=== PATIENT | female | born 1980 | race Caucasian/White ===

== ENCOUNTER 2023-09-11 16:23 | Emergency (ER) | payer MEDICAID ==
[~2023-09-11] VITALS: Ht 180.3 cm; Wt 101.0 kg
[2023-09-11 17:04] VITALS: BP 150/99; PULSE 89; RESP 17; TEMP 99.2; O2SAT 98
[2023-09-11 17:39] LABS: EOSINOPHILS # (AUTO) 0.1 X10'3 (0-0.9)
[2023-09-11 17:41] LABS: BASOPHILS # (AUTO) 0.2 X10'3 (0-0.2); BASOPHILS % (AUTO) 3.2 % (0-1); EOSINOPHILS % (AUTO) 1.5 % (0-6); LYMPHOCYTES # (AUTO) 1.5 X10'3 (1.1-4.8); LYMPHOCYTES % (AUTO) 23.6 % (21-51); MEAN PLATELET VOLUME 8.8 FL (7.4-10.4); MONOCYTES # (AUTO) 0.7 X10'3 (0-0.9); MONOCYTES % (AUTO) 10.7 % (2-12); NEUTROPHILS # (AUTO) 3.8 X10'3 (1.8-7.7); PLATELET COUNT 473 X10'3 (140-440); WHITE BLOOD COUNT 6.3 X10'3 (4.5-11.0)
[2023-09-11 17:53] LABS: ALANINE AMINOTRANSFERASE 16 U/L (12-78); ALBUMIN 3.8 G/DL (3.4-5.0); ALBUMIN/GLOBULIN RATIO 0.9 (1.1-1.5); ALKALINE PHOSPHATASE 90 IU/L (46-116); ANION GAP 8 (8-16); ASPARTATE AMINO TRANSFERASE 35 U/L (10-37); BILIRUBIN,TOTAL 0.4 MG/DL (0.1-1.0); BLOOD UREA NITROGEN 8 MG/DL (7-18); BUN/CREATININE RATIO 11.1 (10.0-20.0); CALCIUM 9.3 MG/DL (8.5-10.1); CHLORIDE 105 MMOL/L (99-107); CREATININE 0.72 MG/DL (0.40-0.90); GLUCOSE 115 MG/DL (70-104); POTASSIUM 4.2 MMOL/L (3.5-5.1); SODIUM 138 MMOL/L (135-145); TOTAL CARBON DIOXIDE 24.7 MMOL/L (24-32); TOTAL PROTEIN 8.1 G/DL (6.4-8.2); eCRCL 115 ML/MIN; eGFR 89 ML/MIN
[2023-09-11 17:57] LABS: HEMOGLOBIN 10.5 g/dl (12.0-16.0); RED BLOOD COUNT 4.83 X10'6 (4.20-5.60)
[2023-09-11 17:58] LABS: HEMATOCRIT 32.4 % (35.0-45.0); MEAN CORPUSCULAR HEMOGLOBIN 21.7 PG (27.0-31.0); MEAN CORPUSCULAR HGB CONC 32.3 g/dL (33.0-36.5); RED CELL DISTRIBUTION WIDTH 21.9 % (11.5-14.5)
[2023-09-11 18:39] LABS: ANISOCYTOSIS 3+; MICROCYTOSIS 2+; PLATELET ESTIMATE NORMAL; POIKILOCYTOSIS FEW
[2023-09-11 18:41] LABS: ELLIPTOCYTES FEW
[2023-09-11 18:42] LABS: LARGE PLATELETS FEW
[2023-09-11 20:22] LABS: BILIRUBIN,URINE NEGATIVE (Neg); CLARITY,URINE CLOUDY (Clear); COLOR,URINE YELLOW (Yellow); GLUCOSE, URINE NEGATIVE (Neg); KETONES,URINE TRACE mg/dl (Neg); LEUKOCYTE ESTERASE ,URINE SMALL (Neg); NITRITES, URINE NEGATIVE (Neg); OCCULT BLOOD,URINE NEGATIVE (Neg); PH,URINE 5.5 (4.8-8.0); PROTEIN,URINE NEGATIVE (Neg); UROBILINOGEN,URINE 0.2 E.U/dL (0.2-1.0)
[2023-09-11 20:26] LABS: UA COLLECTION TYPE CLN CATCH MIDSTREAM
[2023-09-11 20:27] LABS: SQUAMOUS EPITHELIAL CELL,UR MANY /LPF (FEW)
[2023-09-11 20:28] LABS: BACTERIA,URINE 4+ /HPF (Neg); MUCUS STRANDS MANY /LPF (Neg)
[2023-09-11 20:31] LABS: RENAL CELLS, URINE FEW /HPF
== END 2023-09-12 01:18 | disposition left against medical advice (07) ==
LOC: ER 16:24
DX: R53.1 Weakness (principal); Z53.21 Procedure and treatment not carried out due to patient leaving prior to being seen by health care provider
CPT/HCPCS: 80053; 81001; 85008; 85025; 99281

== ENCOUNTER 2023-10-24 17:21 | Emergency (ER) | payer MEDICAID ==
[~2023-10-24] VITALS: Ht 180.3 cm; Wt 104.0 kg
[2023-10-24] MEDS ORDERED: LIDOcaine 1%/PF 5ML 10 MG/ML VIAL IM ONE (18:10)
[2023-10-24] MEDS ORDERED: morphine 2 MG/ML inj. syringe IV ONE (18:20)
[2023-10-24] MEDS ORDERED: morphine 2 MG/ML inj. syringe IM ONE ×2 (18:25→19:15)
[2023-10-24] MEDS ORDERED: LIDOcaine 1%/PF 5ML 10 MG/ML VIAL SQ ONE (19:05)
[2023-10-24] MEDS ORDERED: HYDR-3965 PO (20:13)
[2023-10-24 20:20] VITALS: BP 153/120; PULSE 80; RESP 17; TEMP 98; O2SAT 99
== END 2023-10-24 20:21 | disposition home or self-care (01) ==
LOC: ER 17:22
DX: S52.592A Other fractures of lower end of left radius, initial encounter for closed fracture (principal); Z88.5 Allergy status to narcotic agent; Z79.899 Other long term (current) drug therapy; W18.39XA Other fall on same level, initial encounter; Y93.89 Activity, other specified; Y92.89 Other specified places as the place of occurrence of the external cause; Y99.8 Other external cause status
CPT/HCPCS: 25605; 73100; 73110; 96372; 99284; J2270; A4565

== ENCOUNTER 2024-02-23 12:12 | Outpatient (CLI) | payer OTHER | END 2024-02-23 23:59 | disposition home or self-care (01) | LOC: RAD 12:12 | PROVIDERS: ATTEND Family Medicine | DX: S33.9XXA Sprain of unspecified parts of lumbar spine and pelvis, initial encounter (principal); M47.895 Other spondylosis, thoracolumbar region; M54.16 Radiculopathy, lumbar region; M25.78 Osteophyte, vertebrae; X58.XXXA Exposure to other specified factors, initial encounter; Y93.89 Activity, other specified; Y92.89 Other specified places as the place of occurrence of the external cause; Y99.8 Other external cause status | CPT/HCPCS: 72131 ==

== ENCOUNTER 2025-04-18 11:47 | Emergency (ER) | payer MEDICAID, OTHER ==
[~2025-04-18] VITALS: Ht 177.8 cm; Wt 98.3 kg
--- NOTE | 2025-04-18 15:10 | Physician Documentation ---
History of Present Illness ~ Chief Complaint: Post-operative complication Stated Complaint: POST OP INFECTION Time Seen by MD: 12:50 Primary Medical Doctor: Md Che is PCP at [facility] Mode of Arrival: POV, Ambulatory HPI Patient is seen today with complaints of postoperative surgical incision complications. Patient states she had breast augmentation and tummy tuck done in [place] three weeks ago and she does have a drain in place from the tummy tuck currently. Patient also states that she does have a wound over the incision from the tummy tuck as well as the incision having opened about a week ago from the incision of the right breast. Patient states she just finished a course of Bactrim and ciprofloxacin that was prescribed by her surgeon. Patient states that was to treat a skin infection of her right breast which patient states is significantly better currently. Patient denies any fevers or chills or abdominal pain or chest pain or nausea, vomiting, diarrhea. Patient has no other concern or complaint at this time. Tetanus within 5 years?: Yes Medication Reconciliation Allergies: Coded Allergies: codeine (Unverified Allergy, Unknown, NAUSEA, 10/24/23) Past Medical History Past Medical History: No Pertinent History Past Surgical History: no surgical history Smoking Status: Never smoker Alcohol Use: None Drug Use: none Review of Systems Constitutional: Denies: chills, fever, weakness Eyes: Denies: pain, blurred vision ENT: Denies: ear pain, nose pain, throat pain, mouth pain Respiratory: Denies: cough, shortness of breath Cardiovascular: Denies: chest pain, palpitations Gastrointestinal: Denies: abdominal pain, nausea, vomiting Genitourinary: Denies: burning, dysuria Female Genitalia: Denies: vaginal discharge, pelvic pain Neurological: Denies: headache, dizziness Musculoskeletal: Denies: pain, swelling Integumentary: Denies: rash, lesions Allergic/Immunologic: Denies: hives, itching Hematologic/Lymphatic: Denies: no symptoms reported Psychiatric: Denies: depression, anxiety Physical Exam Vital Signs: Temperature: 98.4, Source: Oral, Heart Rate: 74, Respiratory Rate: 16, BP: 132/76, Pulse Oximetry: 97, Weight: 98.300 Oxygen Flow Rate: 0 Physical Exam General: Awake and Alert, no acute distress. HEENT: Conjunctiva pink, Sclera clear, Mucus Membranes moist. Neck: Supple without masses and tenderness. Resp: Unlabored. Lungs clear to auscultation bilaterally. Heart: Regular Rate and rhythm, normal S1 and S2 without murmur, rub or gallop. Abdomen: Soft and non tender no organomegaly Extremities: No cyanosis,clubbing or edema. Skin: Patient on exam does have dime-size open wound appears to be healing well along the midline of the lower abdomen just superior to the surgical incision. I do not appreciate any significant surrounding erythema. There is no significant tenderness to palpation surrounding. Patient also has about a 3 cm x 4-5 cm open wound on the inferior aspect of her right breast that also appears to be healing well without any significant signs of surrounding erythema or induration. I do not appreciate any significant active signs of current cellulitis or skin infection at this time. Progress Results/Orders Results/Orders Vital Signs 04/18/25 04/18/25 04/18/25 11:59 12:54 13:35 Temp 98.4 98.4 Pulse 83 74 Resp 16 16 16 B/P (MAP) 147/87 132/76 (94) Pulse Ox 98 97 O2 Flow Rate 0 Medical Decision Making Findings Patient is seen today with complaints of postoperative surgical incision complications. Patient states she had breast augmentation and tummy tuck done in [place] three weeks ago and she does have a drain in place from the tummy tuck currently. Patient also states that she does have a wound over the incision from the tummy tuck as well as the incision having opened about a week ago from the incision of the right breast. Patient states she just finished a course of Bactrim and ciprofloxacin that was prescribed by her surgeon. Patient states that was to treat a skin infection of her right breast which patient states is significantly better currently. Patient denies any fevers or chills or abd ominal pain or chest pain or nausea, vomiting, diarrhea. Patient has no other concern or complaint at this time. Patient did have wounds dressed and cleansed today in the ED. patient was given referral to our outpatient wound care clinic here at [facility] and we did call them and patient should be receiving a phone call in the next couple of days to make an appointment. Patient will perform daily dressing changes as outlined. Patient will follow up with her surgeon as soon as possible. She will return to ED with any worsening, concerning or changing symptoms. Departure Disposition: HOME / SELF CARE / HOMELESS Impression: Primary Impression: Surgical wound dehiscence Qualified Codes: T81.31XA - Disruption of external operation (surgical) wound, not elsewhere classified, initial encounter Condition: Improved Discharge Instructions: Delayed Wound Closure Additional Instructions: Patient did have wounds dressed and cleansed today in the ED. patient was given referral to our outpatient wound care clinic here at [facility] and we did call them and patient should be receiving a phone call in the next couple of days to make an appointment. Patient will perform daily dressing changes as outlined. Patient will follow up with her surgeon as soon as possible. She will return to ED with any worsening, concerning or changing symptoms. Referrals: NO PRIMARY CARE PROVIDER (PCP) Signature Scribe Signature: No scribe Attestation: No scribe JO-ANN JHAVERI PAC April 18, 2025 15:10
[2025-04-18 15:54] VITALS: BP 147/91; PULSE 77; RESP 16; TEMP 98.5; O2SAT 96
== END 2025-04-18 15:55 | disposition home or self-care (01) ==
LOC: ER 11:47
DX: T81.31XA Disruption of external operation (surgical) wound, not elsewhere classified, initial encounter (principal); Z88.5 Allergy status to narcotic agent
CPT/HCPCS: 99282; A6222; A6258

== ENCOUNTER 2025-05-29 15:34 | Inpatient (IN) | payer MEDICAID ==
[~2025-05-29] VITALS: Ht 177.8 cm; Wt 97.5 kg
--- NOTE | 2025-05-29 16:41 | RADIOLOGY REPORT ---
CHEST RADIOGRAPH Indication: SEPSIS Technique: Single frontal view of the chest was obtained Comparison: None FINDINGS: Lines and Tubes: None Lungs: No focal consolidation. Pleura: No effusion. No pneumothorax. Cardiomediastinal contours: Unremarkable Bones: No acute osseous abnormality. IMPRESSION: No acute cardiopulmonary disease.
--- NOTE | 2025-05-29 16:53 | Physician Documentation ---
History of Present Illness ~ Chief Complaint: Post-operative complication Stated Complaint: WOUND Time Seen by MD: 18:51 Primary Medical Doctor: Md Che is PCP at [facility] This is a 45-year-old female who presents from outpatient wound care with concern for tunneling and worsening infection of a surgical wound to her lower abdomen. Patient reports no fever, chills, or other systemic symptoms. History as above. Patient had her surgery done two months ago on March 28. She had breast augmentation as well as tummy tuck. Since that time she has been having surgical complications. She reports that she has been going to wound care this past month in his noted improvement on her breasts however she continues to have problems with the wound of her abdomen and noticed some bulging and drainage from the center. No fevers. Patient has surgeon in [facility] is Dr. Quiros at [facility]. She states she was placed on Cipro and Bactrim a proximally three weeks ago, finished that regimen and then placed on she believes cephalexin from wound care which she finished two weeks ago. Tetanus Within 5 Years: Yes Medication Reconciliation Allergies: Coded Allergies: codeine (Unverified Allergy, Unknown, NAUSEA, 05/29/25) Scheduled Amlodipine Besylate (Amlodipine Besylate), 1 TAB PO DAILY, (Reported) Past Medical History Past Medical History: No Pertinent History Past Surgical History: no surgical history Alcohol Use: None Drug Use: none Review of Systems ROS As stated above in the HPI, otherwise all systems are reviewed and negative. Physical Exam Vital Signs: Temperature: 97.8, Source: Temporal, Heart Rate: 103, Respiratory Rate: 18, BP: 149/96, Pulse Oximetry: 98, Weight: 97.500 Physical Exam General: Patient is awake, alert, oriented x4 in no acute distress Head: Normocephalic and atraumatic. Eyes: Conjunctival normal. EOMI. PERRL. ENT: Mucous membranes moist. Neck: Supple, trachea is midline. Chest: Clear to auscultation bilaterally without rales, rhonchi, or wheezes. There is no accessory muscle use or retractions. Cardiac: RRR without murmurs, gallops, or rubs. Abd: Soft, nondistended, postsurgical changes noted of abdomen with some swelling and erythema noted to the center of the incision measuring 3 cm x 3 cm. Pinpoint tunneling adjacent to patient's right abdominal incision site. Progress Progress Note Spoke with results by on-call surgeon, Dr. Ortiz. That has not recommend admission. Doubtful this is an abscess but rather a seroma however in the interest of abundance of precaution we will begin an antibiotic. Cultures sent of the draining fluid. Results/Orders Results/Orders Orders - ROOSEVELT PABON MD Ct Abdomen Pelvis (05/29/25 19:15) Page Hospitalist (05/29/25 21:20) Fill Out Med Reconciliation (05/29/25 21:20) Completed Orders - ROOSEVELT PABON MD Normal Saline 1000ml (Sodium Chloride 10 (05/29/25 19:05) Ct Abdomen Pelvis (05/29/25 19:15) Hcg, Ur Ql (05/29/25 19:09) Medications Received in ER Medications (Trade) Dose Ordered Sig/Viet Route PRN Reason Start Time Stop Time Status Last Admin Dose Admin Sodium Chloride 1,000 ml @ 1,000 mls/hr ONCE ONCE IV 05/29/25 19:05 05/29/25 20:04 DC 05/29/25 20:14 1,000 MLS/HR Vital Signs 05/29/25 05/29/25 05/29/25 05/29/25 16:04 17:46 17:51 19:25 Temp 97.8 Pulse 103 87 85 Resp 18 15 15 18 B/P (MAP) 149/96 146/94 (111) 157/93 (114) Pulse Ox 98 100 100 05/29/25 05/29/25 20:25 20:44 Pulse 98 Resp 16 B/P (MAP) 129/84 (99) Pulse Ox 97 Laboratory Tests Test 05/29/25 16:56 05/29/25 20:15 White Blood Count 13.3 H Red Blood Count 4.55 Hemoglobin 13.2 Hematocrit 39.6 Mean Corpuscular Volume 87.1 Mean Corpuscular Hemoglobin 29.0 Mean Corpuscular Hemoglobin Concent 33.3 Red Cell Distribution Width 16.7 H Platelet Count 431 Mean Platelet Volume 9.1 Neutrophils (%) (Auto) 73.9 Lymphocytes (%) (Auto) 12.9 L Monocytes (%) (Auto) 10.8 Eosinophils (%) (Auto) 1.6 Basophils (%) (Auto) 0.8 Neutrophils # (Auto) 9.8 H Lymphocytes # (Auto) 1.7 Monocytes # (Auto) 1.4 H Eosinophils # (Auto) 0.2 Basophils # (Auto) 0.1 CBC Comment Sodium Level 131 L Potassium Level 3.8 Chloride Level 96 L Carbon Dioxide Level 24.5 Anion Gap 11 Blood Urea Nitrogen 17 Creatinine 2.17 H Estimated GFR/1.73 m2 25 BUN/Creatinine Ratio 7.8 L Glucose Level 71 Lactic Acid Level 1.4 Calcium Level 9.0 Albumin 3.5 Procalcitonin < 0.05 Chemistry Comments Urine Specimen Description Cln catch midstream Urine Color Yellow Urine Clarity Clear Urine pH 6.0 Urine Specific [place] <=1.005 Urine Protein Negative Urine Glucose (UA) Negative Urine Ketones Negative Urine Occult Blood Negative Urine Nitrite Negative Urine Bilirubin Negative Urine Urobilinogen 0.2 Urine Leukocyte Esterase Negative Urine Culture Indicated Not ind Volume Urine Centrifuged 10 ml Urine HCG, Qualitative Negative Urine Comment Microbiology Date/Time Source Procedure Growth Status 05/29/25 17:57 Blood Hand Right Blood Culture - Preliminary NEGATIVE (LESS THAN 24 HOURS) Resulted Medical Decision Making Findings Patient presented to the emergency room with drainage coming from her surgical wound as per HPI. Differentials include but are not limited to sepsis, abscess, seroma, cellulitis therefore emergent labs and imaging indicated. Labs reassuring for no sepsis however abnormality seen on CT scan which was reviewed with on-call surgeon that has not believe patient is suffering from an abscess. Patient also noted to be in acute renal failure. IV fluid resuscitation initiated. Departure Admitted to Inpatient Unit: yes, to hospitalist Impression: Primary Impression: Acute kidney injury Additional Impression: Seroma Condition: Guarded Referrals: NO PRIMARY CARE PROVIDER (PCP) Signature Scribe Signature: No scribe Attestation: The note accurately reflects work and decisions made by me.Roosevelt Pabon MD 05/29/25 21:20 DIOGO SOSA May 29, 2025 16:53 ROOSEVELT PABON MD May 29, 2025 19:02
[2025-05-29 17:46] LABS: CREATININE 2.17 MG/DL (0.40-0.90); TOTAL CARBON DIOXIDE 24.5 MMOL/L (24-32); eCRCL 36 ML/MIN; eGFR 25 ML/MIN
[2025-05-29 17:51] LABS: MEAN PLATELET VOLUME 9.1 FL (7.4-10.4); RED CELL DISTRIBUTION WIDTH 16.7 % (11.5-14.5)
[2025-05-29] MEDS: normal saline 1000ml 1,000 ML IV ONE (20:14)
--- NOTE | 2025-05-29 20:17 | RADIOLOGY REPORT ---
Exam: CT CT ABDOMEN PELVIS History: surgical compliication, wound swelling Comparison Study: None TECHNIQUE: A digital radar repairer image was obtained. During the uneventful, intravenous administration of c ontrast material, multislice data acquisition was obtained through the abdomen and pelvis. The data s et was subsequently reconstructed into axial images. Images reviewed on a wrist examination is an exa mination of axial and multiplanar reformations using a variety of window levels and settings. Findings: Lung bases are unremarkable. The liver, spleen, pancreas, adrenal glands, and kidneys are within normal limits. Status post cholec ystectomy. Urinary bladder is unremarkable. Status post andrea en y bypass. There is a moderate colonic stool burden. There is extensive inflammatory change with skin thickening involving the ventral abdominal fat. Ther e is a thin crescentic layer of fluid without rim enhancing wall measuring 13 by 0.9 cm within the lo wer abdomen. There is trace subcutaneous emphysema. Moderate discogenic degenerative changes within the lower lumbar spine. No acute osseus abnormality. Status post bilateral breast implants. Impression: 1. Postsurgical changes with inflammation and thin crescentic fluid, which is not well circumscribed or well defined within the ventral abdominal wall. Correlate with cellulitis. Fluid likely postsurgi jason seroma versus early abscess formation. 2. Status post gastric bypass.
[2025-05-29 20:31] LABS: LEUKOCYTE ESTERASE ,URINE NEGATIVE (Neg); NITRITES, URINE NEGATIVE (Neg); OCCULT BLOOD,URINE NEGATIVE (Neg)
[2025-05-29 20:35] LABS: UA COLLECTION TYPE CLN CATCH MIDSTREAM
[2025-05-29 20:40] LABS: URINE HCG NEGATIVE (NEG)
[2025-05-29] MEDS ORDERED: AMLO10TA13 PO (22:01)
[2025-05-29] MEDS ORDERED: potassium Cl 20 mEq SR tablet PO PRN ×2 (23:05)
[2025-05-29] MEDS ORDERED: ondansetron/PF 4mg/2ml inj IV PRN (23:05)
[2025-05-29] MEDS ORDERED: potassium Cl 40MEQ/1/2NS 520ml 520 ML IV PRN (23:05)
[2025-05-29] MEDS ORDERED: magnesium Cl slow-release 64mg tablet PO PRN (23:05)
[2025-05-29] MEDS ORDERED: magnesium sulf-water 4G/100mL 100 ML IV PRN (23:05)
[2025-05-29] MEDS ORDERED: mag hydrox/Alum hydrox/simeth 30ml oral suspension PO PRN (23:05)
[2025-05-29] MEDS ORDERED: magnesium sulf-water 2g/50mL 50 ML IV PRN (23:05)
[2025-05-29 23:20] VITALS: BP 149/81; PULSE 88; RESP 16; TEMP 97.3; O2SAT 97
--- NOTE | 2025-05-29 23:53 | HISTORY AND PHYSICAL-Residence ---
History & Physical Providers to CC Resident Creating Document: LIZZETH HINKLE RES ~ History of Present Illness Primary Medical Doctor: Md Che is PCP at [facility] Reason for Admit\Complaint: Cellulitis, ANDREA History of Present Illness 45-year-old female with history of hypertension, gastric bypass, status post tummy tuck and breast reduction surgery two months ago following up with wound care presents to the ED from outpatient wound care with concern of worsening infection in the surgical site of the lower abdomen. She had plastic surgery done in [place] two months ago March 28, surgeon in [facility] is Dr. Quiros at [facility] - tummy tuck and breast reduction. She has been following up with wound care since. She started developing redness at the surgical site in the lower abdomen for the last two days. Complaints of abdominal pain 6/10. Denies significant chest pains, diaphoresis, fevers/chills, nasal congestion, expectoration, palpitations. Post surgery she has been on antibiotics twice ciprofloxacin and Bactrim, followed by Keflex, off antibiotics two weeks ago. Her bilateral breast incisions have been healing well, she has been having issues with the incision of the lower abdomen. She has wound dehiscence on the right side of the lower abdomen. Around half a cm opening is present on the lower abdomen with discharge coming out. She states that the discharge has been clear and yellow. Denies history of kidney issues in the past. Follows up with PCP Dr. Che at [facility]. She lives with her daughter and a roommate. Discussed advanced care directives and she wishes to be a full code. Allergies: Coded Allergies: codeine (Unverified Allergy, Unknown, NAUSEA, 05/29/25) Home Medications Home Medications Active Reported Amlodipine Besylate 10 Mg Tablet 1 Tab PO DAILY Past Medical History Past Medical History Hypertension Past Surgical History Surgical History Comment Bilateral breast reduction and tummy tuck Hysterectomy Gastric bypass Past Social History Alcohol Use: None Drug Use: None ROS ROS Reviewed in full. All negative except for pertinent positive HPI. Exam Vitals: Vital Signs Date Time Temp Pulse Resp B/P (MAP) Pulse Ox O2 Delivery O2 Flow Rate FiO2 05/29/25 22:01 84 16 153/95 (114) 97 05/29/25 16:04 97.8 General: General: Awake and Alert, no acute distress. HEENT: Conjunctiva pink, Sclera clear, Mucus Membranes moist. Neck: Supple without masses and tenderness. Resp: Unlabored. Equal breath sounds bilaterally. Heart: Regular rhythm, normal S1 and S2, no rub, murmur or gallop. Abdomen: Postsurgical changes noted on the abdomen with erythema edema and induration noted in the center of lower abdomen. 1/2 cm tunneling present in the right lower abdomen with clear fluid discharge. Extensive Surgical scar noted on the lower abdomen. Normal bowel sounds x4 quadrant normoactive. No guarding or rigidity. Extremities: Normal ROM, no swelling, nontender. No cyanosis,clubbing or edema. 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 Skin: Bilateral breasts have surgical incision which are clean, extensive lower abdominal incision with a erythema and edema. Diagnostic Data Last Recorded Lab Results: 05/29/25165505/29/251655 Advance Care Planning Advanced Care plannin - 30 Minutes Additional Plan 45-year-old female with history of hypertension, gastric bypass, status post tummy tuck and breast reduction surgery two months ago following up with wound care presents to the ED from outpatient wound care with concern of worsening infection in the surgical site of the lower abdomen. Significant Renal ANDREA, new onset, baseline creatinine 0.72 Creatinine 2.17 and GFR 25 Denies history of kidney issues in the past Received 1 L of fluid bolus in the ED She was on Bactrim ciprofloxacin and Keflex which could be contributing to the above changes in creatinine CT abdomen pelvis states kidneys are within normal limits UA is clear Follow up with ultrasound kidney and urine spot studies Aggressive fluid resuscitation, IV fluids NS at 150 mL/hour Continue to monitor BNP Abdominal wound dehiscence s/p surgery Abdominal wall cellulitis WBCs 13.3, procalcitonin and lactic acid within normal limits CT abdomen shows post surgical changes with inflammation and thin presented fluid possibility of for seroma versus early abscess. ED physician had contacted Dr. Ortiz surgeon, not concerned about an abscess at this point IV vancomycin pharmacy to dose Wound care consulted Wound cultures ordered, follow up with results Status post gastric bypass Status post tummy tuck and breast reduction surgery History of hypertension Med req done Code Status: Full code DVT prophylaxis: Patient is ambulatory Analgesia/sedation: None Line/tube: PIV GI prophylaxis: None Nutrition: Heart healthy Prognosis: Guarded Disposition: Continue medical management. Lizzeth Hinkle MD. IM Resident PGY-3 Date of Service: May 29, 2025 Billing Provider: SHIKHA HILLS MD Common Visit Codes: [id number] INP/OBS CARE (HIGH) Assessment/Plan Assessment Evaluated with the helpof residents Discussed the case with them Reviewed notes by Dr.Elizabeth JUAREZ Agree with her assessments and plans. I also reviewed records,no additional plans now. LIZZETH HINKLE, RES May 29, 2025 23:53 SHIKHA HILLS MD May 30, 2025 04:09
[2025-05-30] VITALS (7 sets, daily range): BP systolic 129–155; BP diastolic 62–90; PULSE 75–80; RESP 14–18; TEMP 97.9–98.3; O2SAT 97–99
[2025-05-30] MEDS: normal saline 1000ml 1,000 ML IV SCH (01:20)
[2025-05-30] MEDS: vancomycin/NS 1 GM ADD-VANTAGE 250 ML IV SCH ×2 (01:20→10:52)
[2025-05-30 04:59] LABS: MEAN PLATELET VOLUME 8.3 FL (7.4-10.4); RED CELL DISTRIBUTION WIDTH 16.9 % (11.5-14.5)
[2025-05-30 05:10] LABS: INR 1.0 INR
[2025-05-30 05:20] LABS: CREATININE 0.80 MG/DL (0.40-0.90); PHOSPHORUS 3.1 MG/DL (2.3-4.5); TOTAL CARBON DIOXIDE 23.6 MMOL/L (24-32); eCRCL 98 ML/MIN; eGFR 78 ML/MIN
--- NOTE | 2025-05-30 07:09 | RADIOLOGY REPORT ---
INDICATION: shaheen TECHNIQUE: Multiple real-time sonographic images of the kidneys and urinary bladder were obtained. COMPARISON: CT scan of the abdomen pelvis dated 05/29/2025. FINDINGS: The right kidney measures 10.9 cm in length. The right renal echotexture, contour and cortical thickn ess are within normal limits. No hydronephrosis or large masses/calculi are seen. The left kidney measures 10.7 cm in length. The left renal echotexture, contour, and cortical thickne ss are within normal limits. No hydronephrosis or large masses/calculi are seen. Urinary bladder not scanned due to overlying dressing. IMPRESSION: 1. No hydronephrosis.
[2025-05-30] MEDS: K and/or MAG REPLACEMENT MC SCH (07:18)
[2025-05-30] MEDS: ringers solution, lacted 1,000 ML IV ONE (09:00)
[2025-05-30] MEDS ORDERED: hydrALAZINE 20mg/ml inj. IV PRN (15:45)
--- NOTE | 2025-05-30 15:46 | PROGRESS NOTE ---
Daily Progress Note Providers to CC ~ Antibiotic Timeout Antibiotic Ordered?: Yes Subjective No acute events overnight. Patient examined at bedside. No new complaints, not in acute distress. Patient denies chest pain, sob, palpitations, abdominal pain, n/v/d. Vss, labs notable for significantly improving ANDREA on IVF. An uptrend of serum sodium of 13mmol/L with IV NS. D5W started. Preliminary blood culture and wound culture negative. 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: CN II-XII intact, no focal deficits Musculoskeletal: No paraspinal muscle tenderness, no muscle spasm Skin: erythematous right lower abdomen; small open wound packed with strip Coagulation Studies Laboratory Tests Test 05/30/25 04:42 Prothrombin Time 10.5 SECONDS (9.0-12.0) INR International Normalized Ratio 1.0 INR Coagulation Comments Problem\Assessment\Plan 45-year-old female with history of hypertension, gastric bypass, status post tummy tuck and breast reduction surgery two months ago following up with wound care presents to the ED from outpatient wound care with concern of worsening infection in the surgical site of the lower abdomen. Sepsis 2/2 cellulitis- POA Abdominal wound dehiscence Abdominal wall cellulitis Prerenal ANDREA 2/2 sepsis/vasomotor nephropathy -05/30: IVF, vancomycin, wound care; uptrend of serum sodium of 13mmol/L with IV NS. D5W started -ED physician had contacted Dr. Ortiz surgeon, not concerned about an abscess at this point Status post gastric bypass Status post tummy tuck and breast reduction surgery HTN -amlodipine, prn hydralazine Med req done Code Status: Full code DVT prophylaxis: Patient is ambulatory Date of Service: May 30, 2025 Billing Provider: CALE MORSE Common Visit Codes: [id number] INP/OBS CARE(HIGH) CALE MORSE May 30, 2025 15:46
[2025-05-31] MEDS ORDERED: vancomycin/NS 1 GM ADD-VANTAGE 250 ML IV SCH
[2025-05-31] MEDS: VANCOMYCIN LEVEL IV ONE (01:30)
[2025-05-31 05:48] LABS: MEAN PLATELET VOLUME 8.7 FL (7.4-10.4); RED CELL DISTRIBUTION WIDTH 16.6 % (11.5-14.5)
[2025-05-31 06:00] VITALS: BP 134/70; PULSE 72; RESP 16; TEMP 97.6; O2SAT 97
[2025-05-31 06:19] LABS: CREATININE 0.51 MG/DL (0.40-0.90); PHOSPHORUS 2.4 MG/DL (2.3-4.5); TOTAL CARBON DIOXIDE 23.7 MMOL/L (24-32); eCRCL 154 ML/MIN; eGFR > 90 ML/MIN
[2025-05-31 08:00] VITALS: RESP 16; O2SAT 97
[2025-05-31] MEDS: piperacillin/tazo 3.375gm/50ml 50 ML IV SCH (09:14)
[2025-05-31] MEDS ORDERED: LACT1CAP26 PO (09:31)
[2025-05-31] MEDS ORDERED: PANT40TA54 PO (09:31)
[2025-05-31] MEDS ORDERED: LOSA25TA41 PO (09:31)
[2025-05-31] MEDS ORDERED: CLIN-97 PO (09:31)
[2025-05-31] MEDS ORDERED: CEFD300C3 PO (09:31)
[2025-05-31 10:00] VITALS: BP 139/80; PULSE 82; RESP 16; TEMP 97.8; O2SAT 97
--- NOTE | 2025-05-31 14:15 | DISCHARGE SUMMARY ---
Discharge Summary Providers to CC ~ Discharge Summary Admission Diagnosis: ANDREA, sepsis, cellulitis Hospital Course DATE OF ADMISSION: 05/29/25 DATE OF DISCHARGE: 05/31/25 Discharge Diagnosis\\Comment: Sepsis 2/2 cellulitis- POA Abdominal wound dehiscence Abdominal wall cellulitis Prerenal ANDREA 2/2 sepsis/vasomotor nephropathy Status post gastric bypass Status post tummy tuck and breast reduction surgery HTN Hyponatremia Operations\\Procedures: None Consultants: Surgeon Andrei Rodrigez Complications: None Condition on DC: Stable New Medications: Cefdinir (Cefdinir) 300 Mg Capsule 1 CAP PO Q12H for 10 Days, #20 CAP 0 Refills Clindamycin HCL* (Clindamycin HCL*) 300 Mg Capsule 1 CAP PO Q6H for 10 Days, #40 CAP Lactobacillus Rhamnosus (Culturelle) 10 Billion Cell Capsule 1 CAP PO DAILY for 30 Days, #30 CAP 0 Refills Pantoprazole Sodium (Pantoprazole Sodium) 40 Mg Tablet.dr 40 MG PO DAILY for 30 Days, #30 TAB.SR Losartan Potassium (Losartan Potassium) 25 Mg Tablet 25 MG PO DAILY for 30 Days, #30 TAB Continued Medications: Amlodipine Besylate (Amlodipine Besylate) 10 Mg Tablet 1 TAB PO DAILY Discharge Summary: History of Present Illness From H&P: "45-year-old female with history of hypertension, gastric bypass, status post tummy tuck and breast reduction surgery two months ago following up with wound care presents to the ED from outpatient wound care with concern of worsening infection in the surgical site of the lower abdomen. She had plastic surgery done in [place] two months ago March 28, surgeon in [facility] is Dr. Quiros at [facility] - tummy tuck and breast reduction. She has been following up with wound care since. She started developing redness at the surgical site in the lower abdomen for the last two days. Complaints of abdominal pain 05/02. Denies significant chest pains, diaphoresis, fevers/chills, nasal congestion, expectoration, palpitations. Post surgery she has been on antibiotics twice ciprofloxacin and Bactrim, followed by Keflex, off antibiotics two weeks ago. Her bilateral breast incisions have been healing well, she has been having issues with the incision of the lower abdomen. She has wound dehiscence on the right side of the lower abdomen. Around half a cm opening is present on the lower abdomen with discharge coming out. She states that the discharge has been clear and yellow. Denies history of kidney issues in the past. Follows up with PCP Dr. Che at [facility]. She lives with her daughter and a roommate. Discussed advanced care directives and she wishes to be a full code." Hospital Course Diagnostic findings were notable for renal insufficiency, findings of sepsis, CT abdomen/pelvis revealing cellulitis and likely postsurgical seroma versus early abscess formation. Case was discussed with surgeon Dr. Da Silva in ED who suggested abscess is unlikely. Pertinent negative findings were normal lactic acid and negative protocol. Patient was treated with intravenous fluids, empirical antibiotics, and wound care. Patient did not experience further complications throughout the entire hospital stay. Patient was seen and examined on the day of discharge. On day of discharge, vss and labs notable for resolving acute kidney injury. Preliminary blood cultures remained negative until the day of discharge. Wound culture pending result. All labs, diagnostic workups, discharge plan discussed with patient in details during visit before discharge. All questions and concerns answered to the best of my professional knowledge. Patient is to be discharged to home to self with a course of antibiotics and to follow-up with PCP within 2 weeks and to continue wound care at wound care clinic. Physical Exam General: A&Ox 3, NAD HEENT: Normocephalic, PERRLA Neck: Supple, trachea midline, no JVD Chest: Clear to auscultation bilaterally Cardiovascular: RRR, S1&S2 GI: Soft and nontender Extremities: No cyanosis/clubbing/or edema PATIENT SERVICES CLERK: CN II-XII intact, no focal deficits Musculoskeletal: No paraspinal muscle tenderness, no muscle spasm Skin: erythematous right lower abdomen; small open wound packed with strip *Problems/Diagnosis: (1) Surgical wound dehiscence Status: Acute (2) Cellulitis Total Time Spent on D/C: > 30 Minutes Date of Service: May 31, 2025 Billing Provider: CALE MORSE Common Visit Codes: 16264-LLL/OBS DISCH DAY >30min CALE MORSE May 31, 2025 14:14
== END 2025-05-31 14:20 | disposition home health service (06) | DRG 721 ==
LOC: ER 15:34 → ED HOLD 21:49 → EDBEDREQ 22:41 → ORTHO 4S 23:15
PROVIDERS: ADMIT Internal Medicine Critical Care Medicine; ATTEND Nurse Practitioner Family
DX: T81.49XA Infection following a procedure, other surgical site, initial encounter (principal); N17.0 Acute kidney failure with tubular necrosis; A41.9 Sepsis, unspecified organism; I10 Essential (primary) hypertension; L03.311 Cellulitis of abdominal wall; Y83.8 Other surgical procedures as the cause of abnormal reaction of the patient, or of later complication, without mention of misadventure at the time of the procedure; Y92.89 Other specified places as the place of occurrence of the external cause; Z98.84 Bariatric surgery status; E87.1 Hypo-osmolality and hyponatremia
CPT/HCPCS: 36415; 71045; 74176; 76770; 80048; 80053; 80202; 81003; 81025; 83605; 83735; 84100; 84145; 85025; 85610; 85651; 87040; 87070; 87075; 87077; 87081; 87186; 96360; 99285; A6196; A6253; A6266; A6449; G0378; J2543; J3370; J7030; J7040; J7070; J7120